=== PATIENT | female | born 1935 | race Caucasian/White ===

== ENCOUNTER → 2016-10-15 | Outpatient (CLI) | payer MEDICARE, OTHER ==
[~2016-10-15] MED LIST: REGADENOSON 0.4 MG/5 ML DISP.SYRIN. IV ONE
== END | disposition home or self-care (01) ==
LOC: PCVCIMAG 09:31
PROVIDERS: ATTEND Internal Medicine Cardiovascular Disease
DX: I48.91 Unspecified atrial fibrillation (principal); E78.00 Pure hypercholesterolemia, unspecified; I25.10 Atherosclerotic heart disease of native coronary artery without angina pectoris; R07.9 Chest pain, unspecified; R00.2 Palpitations; Z82.49 Family history of ischemic heart disease and other diseases of the circulatory system
CPT/HCPCS: 78452; 93017; A9500; G0463; J2785

== ENCOUNTER → 2016-12-07 | Outpatient (CLI) | payer OTHER | END | disposition home or self-care (01) | LOC: PCVCCLINIC 11:21 | PROVIDERS: ATTEND Internal Medicine Cardiovascular Disease | DX: I48.91 Unspecified atrial fibrillation (principal); E78.00 Pure hypercholesterolemia, unspecified; I25.10 Atherosclerotic heart disease of native coronary artery without angina pectoris; R10.9 Unspecified abdominal pain; Z82.49 Family history of ischemic heart disease and other diseases of the circulatory system | CPT/HCPCS: G0463 ==

== ENCOUNTER → 2017-09-24 | Outpatient (CLI) | payer OTHER ==
--- NOTE | 2017-09-24 16:22 | PCVCIMAG ---
APPROVED REPORT Study performed: 09/24/2017 12:40:20 EXAM: Comprehensive 2D, Doppler, and color-flow Echocardiogram Patient Location: Echo lab Room #: 2Status: routine BSA: 1.78 HR: 67 bpmBP: 106/72 mmHg Rhythm: NSR Other Information Study Quality: Adequate Risk Factors: Cardiac Risk Factors: HTN, Hyperlipidemia Indications Atrial Fibrillation CAD Hypertension/HDD Coronary Ca+ score >1000, paroxysmal a fib 2D Dimensions LVEF(%): 65.79 (>50%) IVSd: 9.64 (7-11mm)LVOT Diam: 18.54 (18-24mm) LVDd: 45.71 mm PWd: 8.81 (7-11mm)Ascending Ao: 31.33 (22-36mm) LVDs: 29.22 (25-40mm) Left Atrium: 33.53 (27-40mm) Aortic Root: 24.20 mm LV Single Plane 4CH: 48.60 % LV Single Plane 2CH: 53.32 %Pringle's LVEF: 50.96 % Biplane EF: 51.3 % Volumes Left Atrial Volume (Systole) Single Plane 4CH: 63.56 mLSingle Plane 2CH: 46.62 mL Biplane LA Volume: 57.00 mLLA ESV Index: 32.00 mL/m2 Aortic Valve AoV Peak Chi.: 1.36 m/s AO Peak Gr.: 7.45 mmHgLVOT Max P.51 mmHg LVOT Max V: 0.61 m/s JUNIE Vmax: 1.21 cm2 AI Vmax: 2.53 m/s AI Brantley: 1.22 m/s2 AI PHT: 599.88 ms Mitral Valve E/A Ratio: 0.5 MV Decel. Time: 312.71 ms MV E Max Chi.: 0.30 m/s MV A Chi.: 0.61 m/s IVRT: 141.87 ms TDI E/Lateral E': 10.00E/Medial E': 7.50 Medial E' Chi.: 0.04 m/s Lateral E' Chi.: 0.03 m/s Pulmonary Valve PV Peak Chi.: 0.77 m/sPV Peak Gr.: 2.36 mmHg Pulmonary Vein P Vein S: 0.42 m/sP Vein A: 0.29 m/s P Vein D: 0.22 m/sP Vein A Dur.: 96.9 msec P Vein S/D Ratio: 1.91 Tricuspid Valve TR Peak Chi.: 2.67 m/s TR Peak Gr.: 28.50 mmHg TV Vmax: 0.46 m/sPA Pressure: 36.00 mmHg Left Ventricle The left ventricle is normal size. There is normal LV segmental wall motion. There is normal left ventricular wall thickness. Left ventricular systolic function is low normal. LVEF is 50-55%. Grade I - abnormal relaxation pattern. Right Ventricle The right ventricle is normal size. The right ventricular systolic function is normal. Atria The left atrium size is normal. The right atrium size is normal. Aortic Valve Aortic valve is trileaflet. The aortic valve leaflets are mildly sclerotic. Trace to mild aortic regurgitation. There is no aortic valvular stenosis. Mitral Valve The mitral valve is normal in structure. Trace mitral regurgitation. No evidence of mitral valve stenosis. Tricuspid Valve The tricuspid valve is normal in structure. Trace to mild tricuspid regurgitation with a PA pressure of 36 mmHg. Pulmonic Valve The pulmonary valve is normal in structure. Trace pulmonic regurgitation. Great Vessels The aortic root is normal in size. The ascending aorta is normal in size. IVC is normal in size and collapses with >50% inspiration Pericardium There is no pericardial effusion. There is no pleural effusion. <Conclusion> The left ventricle is normal size. Left ventricular systolic function is low normal. LVEF is 50-55%. Grade I - abnormal relaxation pattern. The right ventricle is normal size. The left atrium size is normal. The right atrium size is normal. Aortic valve is trileaflet. The aortic valve leaflets are mildly sclerotic. Trace to mild aortic regurgitation. There is no aortic valvular stenosis. Trace mitral regurgitation. Trace to mild tricuspid regurgitation with a PA pressure of 36 mmHg. There is no pericardial effusion.
== END | disposition home or self-care (01) ==
LOC: PCVCIMAG 12:38
PROVIDERS: ATTEND Internal Medicine Cardiovascular Disease
DX: I25.10 Atherosclerotic heart disease of native coronary artery without angina pectoris (principal); I48.0 Paroxysmal atrial fibrillation; I10 Essential (primary) hypertension; M54.18 Radiculopathy, sacral and sacrococcygeal region; R93.1 Abnormal findings on diagnostic imaging of heart and coronary circulation; E78.5 Hyperlipidemia, unspecified; R94.31 Abnormal electrocardiogram [ECG] [EKG]; Z82.49 Family history of ischemic heart disease and other diseases of the circulatory system; Z87.891 Personal history of nicotine dependence; Z79.899 Other long term (current) drug therapy
CPT/HCPCS: 80061; 93005; 93306; G0463

== ENCOUNTER → 2018-05-02 | Outpatient (CLI) | payer OTHER | END | disposition home or self-care (01) | LOC: PCVCCLINIC 15:46 | DX: I48.0 Paroxysmal atrial fibrillation (principal); E78.5 Hyperlipidemia, unspecified; I10 Essential (primary) hypertension; R94.31 Abnormal electrocardiogram [ECG] [EKG]; Z82.49 Family history of ischemic heart disease and other diseases of the circulatory system; Z87.891 Personal history of nicotine dependence; Z79.899 Other long term (current) drug therapy | CPT/HCPCS: 80061; 93005; G0463 ==

== ENCOUNTER → 2019-01-09 | Outpatient (CLI) | payer OTHER | END | disposition home or self-care (01) | LOC: PCVCCLINIC 13:07 | PROVIDERS: ATTEND Internal Medicine Cardiovascular Disease | DX: I48.0 Paroxysmal atrial fibrillation (principal); E78.00 Pure hypercholesterolemia, unspecified; R93.1 Abnormal findings on diagnostic imaging of heart and coronary circulation; D68.59 Other primary thrombophilia; Z82.49 Family history of ischemic heart disease and other diseases of the circulatory system; Z87.891 Personal history of nicotine dependence; Z79.899 Other long term (current) drug therapy | CPT/HCPCS: 36415; 80061; 93005; G0463 ==

== ENCOUNTER → 2019-05-25 | Outpatient (CLI) | payer OTHER ==
--- NOTE | 2019-05-26 12:05 | PCVCIMAG ---
APPROVED REPORT Imaging Protocol: Rest Tc-99m/Stress Tc-99m 1 day Study performed: 05/25/2019 11:03:53 Indication: Chest Pain, AFib, Ca+ Score Patient Location: Out-Patient Stress Nurse: Nessa Bryson RN, Mone Andrews RN HI Tech:Daisy [employer] Knight Ht: 5 ft 6 in Wt: 163 lbs BSA: 1.83 m2 HR: 60 bpm BP: 200/98 mmHg BMI: 26.3 Rhythm: Sinus Rhythm, nonspecific T abnormalities Medical History Medical History: Age, HTN, AFib, High Ca+ Score, Family hx CAD, Former Tobacco User Medications: Eliquis, Metoprolol (took this am) Olmesartan-HCTZ Allergies: No known drug allergies Pretest Chest Pain Characteristics: No chest pain Exercise History: Sedentary Physical Disabilities: Back Resting Data Rest SPECT myocardial perfusion imaging was performed in supine position 45 minutes following the intravenous injection of 10.9 mCi of Tc-99m Sestamibi. Time of rest injection: 1015 Date: 05/25/2019 Administration Route: IV Administration Site: Right AC Pharmacologic Stress Pharmacologic stress test was performed by injecting Regadenoson 0.4 mg IV push over 10-15 seconds immediately followed by the intravenous injection of 31.9 mCi of Tc-99m Sestamibi. Time of stress injection: 1140 Date: 05/25/2019 Gated Stress SPECT was performed 45 minutes after stress injection. The images were gated to evaluate regional wall motion and calculate left ventricular ejection fraction. Stress Test Details Stress Test: Pharmacologic stress testing performed using 0.4 mg of regadenoson per 5 mL given IV over 10 seconds. Reason for pharmacologic stress test: Chronic Back Pain. HRMax Heart Rate (APMHR): 137 bpm Resting HR: 60 bpmTarget HR (85% APMHR): 116 bpm Max HR Achieved: 86 bpm % of APMHR: 62 Recovery HR: 80 bpm BP Resting BP: 200/98 mmHg Max BP: 210/104 mmHg Recovery BP: 175/86 mmHg ECG Resting ECG: Sinus Rhythm, nonspecific T abnormalities Stress ECG: Sinus Rhythm, nonspecific T abnormalities Arrhythmia: PVCs Recovery ECG: Sinus Rhythm, nonspecific T abnormalities Clinical Reason for Termination: Completed protocol Stress Symptoms: Dyspnea, Lightheaded Exercise duration: min 55 sec Symptoms resolved with caffeine.Symptoms resolved with caffeine. Stress ECG Conclusion ECG: Non-ischemic Study Quality Study: Good Study Data Post stress, the left ventricular ejection was 74%.. SSS: 0 SRS: 1 SDS: 0 TID = 0.86. Perfusion No evidence of stress induced ischemia or prior myocardial infarction. Wall Motion Normal left ventricular size and function with no regional wall motion abnormalities. Nuclear Conclusion No evidence of stress induced ischemia or prior myocardial infarction. Normal left ventricular size and function with no regional wall motion abnormalities. Post stress, the left ventricular ejection was 74%. No change since prior study dated October 2016. Interpreted by: Regino Carrillo MD Electronically Approved: 05/25/2019 15:55:51 <Conclusion> ECG: Non-ischemic
== END | disposition home or self-care (01) ==
LOC: PCVCIMAG 09:43
PROVIDERS: ATTEND Internal Medicine Cardiovascular Disease
DX: R07.9 Chest pain, unspecified (principal); I48.0 Paroxysmal atrial fibrillation; I25.10 Atherosclerotic heart disease of native coronary artery without angina pectoris; R09.89 Other specified symptoms and signs involving the circulatory and respiratory systems; Z87.891 Personal history of nicotine dependence
CPT/HCPCS: 78452; 93017; A9500; J2785

== ENCOUNTER → 2019-08-02 | Outpatient (CLI) | payer OTHER ==
--- NOTE | 2019-08-02 16:08 | PCVCIMAG ---
EXAM: ABDOMINAL ULTRASOUND COMPLETE INDICATION: Abdominal pain FINDINGS: Gallbladder: No shadowing gallstones. Note is made of a small amount of sludge in the gallbladder. No wall thickening or abnormal pericholecystic fluid. Liver: Normal in size measuring 16.4 cm in length. No focal masses. Bile ducts: No intra or extra hepatic bile duct dilatation. The common bile duct measures 6.5 mm. Pancreas: Unremarkable where seen. Spleen: Normal in size measuring 7.3 cm in greatest dimension. No focal masses. Right kidney: No hydronephrosis. Length measures 14.0 cm. 7.1 cm benign cyst upper pole. Left kidney: No hydronephrosis. Length measures 11.5 cm. Inferior vena cava: Normal in size where seen. Aorta: Normal in caliber where seen. IMPRESSION: Small amount of gallbladder sludge. No shadowing gallstones identified. Gallbladder otherwise unremarkable. LOC:[id number]
--- NOTE | 2019-08-02 16:43 | PCVCIMAG ---
APPROVED REPORT Study performed: 08/02/2019 08:46:22 EXAM: Comprehensive 2D, Doppler, and color-flow Echocardiogram Patient Location: Echo lab Status: routine BSA: 1.83 HR: 70 bpmBP: 126/74 mmHg Rhythm: NSR Other Information Study Quality: Adequate Risk Factors: Cardiac Risk Factors: HTN Indications Chest Pain parox a fib 2D Dimensions IVSd: 11.76 (7-11mm) LVDd: 42.39 mm PWd: 10.79 (7-11mm)Ascending Ao: 38.02 (22-36mm) LVDs: 28.62 (25-40mm) Left Atrium: 39.17 (27-40mm) Aortic Root: 39.30 mm LV Single Plane 4CH: 49.71 % LV Single Plane 2CH: 62.90 % Biplane EF: 55.5 % Volumes Left Atrial Volume (Systole) Single Plane 4CH: 57.31 mLSingle Plane 2CH: 66.34 mL LA ESV Index: 35.00 mL/m2 Aortic Valve AoV Peak Chi.: 1.93 m/s AO Peak Gr.: 14.92 mmHgLVOT Max P.82 mmHg LVOT Max V: 0.98 m/s Mitral Valve E/A Ratio: 0.7 MV Decel. Time: 242.52 ms MV E Max Chi.: 0.40 m/s MV A Chi.: 0.55 m/s IVRT: 152.25 ms Pulmonary Valve PV Peak Chi.: 1.34 m/sPV Peak Gr.: 7.29 mmHg Pulmonary Vein P Vein S: 0.30 m/sP Vein A: 0.30 m/s P Vein D: 0.44 m/sP Vein A Dur.: 134.9 msec P Vein S/D Ratio: 0.68 Tricuspid Valve TR Peak Chi.: 2.82 m/s TR Peak Gr.: 30.63 mmHg Left Ventricle The left ventricle is normal size. There is normal LV segmental wall motion. Borderline concentric left ventricular hypertrophy. Left ventricular systolic function is normal. The left ventricular ejection fraction is within the normal range. LVEF is 50-55%. Grade I - abnormal relaxation pattern. Right Ventricle The right ventricle is normal size. The right ventricular systolic function is normal. Atria Left atrium is mildly dilated. The right atrium size is normal. Aortic Valve Mild aortic valve sclerosis. Mild aortic regurgitation. There is no aortic valvular stenosis. Mitral Valve The mitral valve is normal in structure. Mild mitral regurgitation. No evidence of mitral valve stenosis. Tricuspid Valve The tricuspid valve is normal in structure. Mild tricuspid regurgitation with PAP of 38 mmHg. Pulmonic Valve The pulmonary valve is normal in structure. Mild pulmonic regurgitation. Great Vessels Aortic root is mildly dilated to 3.9 cm. IVC is normal in size and collapses >50% with inspiration. Pericardium There is no pericardial effusion. There is no pleural effusion. <Conclusion> The left ventricle is normal size. Borderline concentric left ventricular hypertrophy. LVEF is 50-55%. Grade I - abnormal relaxation pattern. The right ventricle is normal size. Left atrium is mildly dilated. Mild aortic valve sclerosis. Mild aortic regurgitation. Mild mitral regurgitation. Mild tricuspid regurgitation with PAP of 38 mmHg. Aortic root is mildly dilated to 3.9 cm. There is no pericardial effusion.
== END | disposition home or self-care (01) ==
LOC: PCVCIMAG 09:11
PROVIDERS: ATTEND Internal Medicine Cardiovascular Disease
DX: I08.3 Combined rheumatic disorders of mitral, aortic and tricuspid valves (principal); I48.0 Paroxysmal atrial fibrillation; I11.9 Hypertensive heart disease without heart failure; E78.00 Pure hypercholesterolemia, unspecified; M19.90 Unspecified osteoarthritis, unspecified site; Z87.891 Personal history of nicotine dependence; Z79.899 Other long term (current) drug therapy
CPT/HCPCS: 36415; 76700; 80061; 93005; 93306; G0463